=== PATIENT | female | born 1975 | race Caucasian/White ===

== ENCOUNTER 2021-02-02 01:54 | Emergency (ER) | payer MEDICAID, OTHER, SELFPAY ==
[~2021-02-02] VITALS: Ht 182.9 cm; Wt 89.1 kg
[2021-02-02 01:58] VITALS: BP 179/99
[2021-02-02] MEDS ORDERED: DEXAMETHASONE 4 MG TABLET ONE (02:20)
[2021-02-02] MEDS ORDERED: ALBUTEROL/IPRATROPIUM 2.5MG/0.5MG, 3 ML ONE (02:20)
--- NOTE | 2021-02-02 02:25 | NUR ---
PT AMBULATED TO ROOM, WITH ACTIVE COUGH, NON PRODUCTIVE. PA TO ROOM TO SEE PT, AND SWABBED THROAT FOR STREP THROAT, AND ORDERS RECEIVED. DUONEB STARTED ON PT. AND DECADRON PO GIVEN TO PT PER EMAR ORDERS. PT TOLERATING WELL, AND STATES SOME RELIEF.
[2021-02-02] MEDS ORDERED: ALBUTEROL/IPRATROPIUM 2.5MG/0.5MG, 3 ML NPPB ONE (02:30)
[2021-02-02] MEDS ORDERED: DEXAMETHASONE 4 MG TABLET PO ONE (02:30)
--- NOTE | 2021-02-02 03:23 | NUR ---
PT BREATHING BETTER AND STATES SHE FEELS RELIEF. F/U AND D/C INSTRUCTIONS GIVEN TO PT AND PRESCRIPTIONS FOR ANTIBIOTICS AND SHE V/U. PT AMBULATORY AND NO RESPIRATORY DISTRESS.
== END 2021-02-02 03:29 | disposition home or self-care (01) ==
LOC: ED 03:00
DX: J44.1 Chronic obstructive pulmonary disease with (acute) exacerbation (principal); J18.9 Pneumonia, unspecified organism; F17.210 Nicotine dependence, cigarettes, uncomplicated; F12.10 Cannabis abuse, uncomplicated; R06.00 Dyspnea, unspecified
CPT/HCPCS: 71046; 87081; 87147; 87880; 94640; 99406

== ENCOUNTER 2021-05-26 22:54 | Emergency (ER) | payer MEDICAID ==
[~2021-05-26] VITALS: Ht 180.3 cm; Wt 91.0 kg
[2021-05-26] MEDS ORDERED: SODIUM CHLORIDE FLUSH 10ML SYR IVF ONE (23:30)
[2021-05-26] MEDS ORDERED: SODIUM CHLORIDE 0.9% 1,000ML IVBOLUS ONE (23:30)
[2021-05-26 23:42] LABS: BASOPHILS % (AUTO) 1 % (0-1); EOSINOPHILS % (AUTO) 0 % (1-7); LYMPHOCYTES % (AUTO) 24 % (22-44); MEAN CORPUSCULAR HEMOGLOBIN 24.8 pg (27.0-34.8); MEAN CORPUSCULAR HGB CONC 32.4 g/dL (32.4-35.8); MEAN PLATELET VOLUME 7.9 fL (7.4-10.4); MONOCYTES % (AUTO) 8 % (2-9); NEUTROPHILS % (AUTO) 67 % (42-75); PLATELET COUNT 279 x10^3/uL (130-400); RED BLOOD COUNT 4.51 x10^6/uL (3.82-5.3); RED CELL DISTRIBUTION WIDTH 19.5 % (9.6-15.2)
[2021-05-26 23:55] LABS: ALANINE AMINOTRANSFERASE 18 U/L (12-78); ALBUMIN 4.1 g/dL (3.4-5.0); ANION GAP 9 mmol/L (5-15); CALCIUM 8.5 mg/dL (8.5-10.1); CHLORIDE 111 mmol/L (98-107); CREATININE 0.74 mg/dL (0.55-1.02)
[2021-05-26 23:59] LABS: ALKALINE PHOSPHATASE 70 U/L (45-117); BILIRUBIN,TOTAL 0.7 mg/dL (0.2-1.0); TOTAL PROTEIN 8.2 g/dL (6.4-8.2); TROPONIN I < 0.015 ng/mL (0.000-0.045)
--- NOTE | 2021-05-27 00:40 | NUR ---
Break RN assuming care at this time.
[2021-05-27] MEDS ORDERED: KETOROLAC 30 MG/1 ML ONE (01:23)
[2021-05-27] MEDS ORDERED: DIAZEPAM 5 MG/ML, 2ML ONE (01:23)
[2021-05-27] MEDS ORDERED: KETOROLAC 15 MG/1ML IVPush ONE (01:30)
[2021-05-27] MEDS ORDERED: DIAZEPAM 5 MG/ML, 2ML IVPush ONE (01:30)
[2021-05-27 02:55] VITALS: BP 139/75
== END 2021-05-27 02:57 | disposition home or self-care (01) ==
LOC: ED 23:00
DX: S29.012A Strain of muscle and tendon of back wall of thorax, initial encounter (principal); S16.1XXA Strain of muscle, fascia and tendon at neck level, initial encounter; S46.812A Strain of other muscles, fascia and tendons at shoulder and upper arm level, left arm, initial encounter; S29.011A Strain of muscle and tendon of front wall of thorax, initial encounter; J44.9 Chronic obstructive pulmonary disease, unspecified; F17.200 Nicotine dependence, unspecified, uncomplicated; Z88.2 Allergy status to sulfonamides; Z88.5 Allergy status to narcotic agent; R94.31 Abnormal electrocardiogram [ECG] [EKG]; X58.XXXA Exposure to other specified factors, initial encounter; Y93.89 Activity, other specified; Y92.89 Other specified places as the place of occurrence of the external cause; Y99.8 Other external cause status
CPT/HCPCS: 36415; 71045; 80053; 84484; 85025; 85379; 93005; 96361; 96374; 96375; 99285; J1885; J3360; J7030